=== PATIENT | female | born 1965 | race Caucasian/White ===

== ENCOUNTER 2016-10-05 07:35 | Day surgery (SDC) | payer OTHER ==
[~2016-10-05] VITALS: Ht 162.6 cm; Wt 59.0 kg
[~2016-10-05 07:35] MED LIST: BUPR10TASR PO; LEVO125T4 PO; LORA0.5T11 PO
[2016-10-05] MEDS ORDERED: LR 1,000 ML IV ONE (07:45)
[2016-10-05] MEDS ORDERED: IBUP-1022 PO (08:14)
[2016-10-05] MEDS ORDERED: AMOX500C PO (08:16)
[2016-10-05] MEDS ORDERED: HYDR-3713 PO (08:17)
[2016-10-05] MEDS ORDERED: fentaNYL 250 MCG/5 ML INJECTION (J3010) As Ordered ONE (09:11)
[2016-10-05] MEDS ORDERED: PROPOFOL 200 MG/20 ML VIAL As Ordered ONE (09:11)
[2016-10-05] MEDS ORDERED: GLYCOPYRROLATE INJ 0.2 MG/ML 2 ML VIAL As Ordered ONE (09:11)
[2016-10-05] MEDS ORDERED: ROCURONIUM BROMIDE 50 MG/5 ML VIAL/SYRINGE As Ordered ONE (09:11)
[2016-10-05] MEDS ORDERED: LIDOCAINE 2% INJ 100 MG/5 ML SDV (FOR ANES.) As Ordered ONE (09:11)
[2016-10-05] MEDS ORDERED: MIDAZOLAM INJ 2 MG/2 ML VIAL (J2250) As Ordered ONE (09:11)
[2016-10-05] MEDS ORDERED: dexameTHASONE 4 MG/ML 1ML VIAL (J1100) As Ordered ONE (09:12)
[2016-10-05] MEDS ORDERED: ONDANSETRON 4MG/2ML VIAL (J2405) As Ordered ONE (09:12)
[2016-10-05] MEDS ORDERED: METOCLOPRAMIDE INJ 10MG/2ML VIAL (J2765) As Ordered ONE (09:12)
[2016-10-05] MEDS ORDERED: MEPERIDINE INJ 25 MG/ML VIAL (J2175) IV PRN (09:45)
[2016-10-05] MEDS ORDERED: fentaNYL 100 MCG/2 ML INJECTION (J3010) IV PRN (09:45)
[2016-10-05] MEDS ORDERED: PERCOCET 5MG/325MG TAB PO PRN (09:45)
[2016-10-05] MEDS ORDERED: LR 1,000 ML IV SCH ×2 (09:45→10:00)
[2016-10-05] MEDS ORDERED: ONDANSETRON 4MG/2ML VIAL (J2405) IV PRN (09:45)
[2016-10-05] MEDS ORDERED: METOCLOPRAMIDE INJ 10MG/2ML VIAL (J2765) IV PRN (09:45)
[2016-10-05 10:50] VITALS: BP 123/66
--- NOTE | 2016-10-06 13:41 | RO ---
DATE OF PROCEDURE: 10/05/2016 PREPROCEDURE DIAGNOSIS: Caries and impacted tooth #17 with deep caries and associated cystic bony lesion between teeth 17 and 18 and carious and involved tooth #18. POSTPROCEDURE DIAGNOSIS: Caries and impacted tooth #17 with deep caries and associated cystic bony lesion between teeth 17 and 18 and carious and involved tooth #18. PROCEDURE: Surgical removal of teeth #17 and 18 and an exploration and removal of the cystic lesion in the area of 17 and 18. SURGEON: Dr. Jarett Mtz. TELEGRAPH OFFICE MANAGER: ANESTHESIA: General nasal endotracheal. INDICATION: The patient is a 51-year-old female referred by her general dentist for evaluation on removal of teeth #17 and 18 and removal of surrounding lesion between 17 and 18. The procedure was necessary to be performed in the operating room under anesthesia. The patient with past history of thyroid dysfunction and heart arrhythmia and anxiety. DESCRIPTION OF PROCEDURE: The patient was brought to the operating room (OR) per anesthesia and placed supine on the OR table wherein general nasal endotracheal anesthesia was undertaken without difficulty. After the usual sterile prep and drape for intraoral procedure was performed, a throat pack was placed. 2% Xylocaine with 1:100,000 epinephrine was injected approximately 3 mL along the surgical site. A 15-scalpel blade was used to make a full thickness mucoperiosteal incision and carried from the left external oblique ridge of the mandible forward to the first molar. Buccal flap was then raised with the periosteal elevator exposing the buccal bone support over the top of 18 and the cystic lesion was associated with tooth 17 and overlying bone support came into view. Tooth 18 was then removed after removal of small amount of buccal bone support and the area of the cystic bony lesion and the impacted tooth crown, which was carious of 17, was exposed. Tooth 17 was then exposed further with the Garcia drill and copious sterile saline exposed the impacted tooth crown. The surrounding cystic bone lesion was also noted surrounding the impacted tooth crown and extended forward to the distal portion of tooth #18. The tooth was then elevated and delivered. After that was performed, exploration and excision of the cystic lesion was performed. The lesion did extend, as previously stated, all around the impacted tooth crown of 17 forward and even inferiorly below the area of the impacted tooth 17. This all was excised. The area was copiously irrigated and examined. There was no obvious bone fractures. There was no obvious extension into the inferior alveolar canal. At closure, after copious sterile saline irrigation, the area was closed with #3-0 gut interrupted sutures for hemostasis. At the termination of the procedure, the oropharynx was inspected and found to be free of debris. The throat pack was removed and the patient's was awakened per anesthesia. The estimated blood loss was less than 5 mL. Fluids: 500 mL of crystalloid solution. The teeth were sent for identification to pathology and the cystic lesion was sent for microscopic analysis to pathology. DISPOSITION: The patient was extubated in the operating room and taken to the recovery room breathing spontaneously in stable condition. MADDY
== END 2016-10-05 10:51 | disposition home or self-care (01) ==
LOC: M SDC 07:35
PROVIDERS: ATTEND Dentist Oral and Maxillofacial Surgery
DX: K02.9 Dental caries, unspecified (principal); K01.1 Impacted teeth; K09.0 Developmental odontogenic cysts; E03.9 Hypothyroidism, unspecified; F41.9 Anxiety disorder, unspecified; Z79.899 Other long term (current) drug therapy
CPT/HCPCS: 88300; 88307; D7230; D7460; D9223

== ENCOUNTER → 2021-03-10 | Outpatient (CLI) | payer SELFPAY ==
[~2021-03-10] MED LIST changes: +AMOX500C PO; +HYDR-3713 PO; +IBUP-1022 PO; -LORA0.5T11 PO; +LORA0.5T5 PO
== END ==
LOC: M LABSMTC 12:08
PROVIDERS: ATTEND Pediatrics
DX: Z20.822 Contact with and (suspected) exposure to COVID-19 (principal)

== ENCOUNTER 2023-04-04 16:42 | Outpatient (CLI) | payer OTHER ==
[~2023-04-04] VITALS: Ht 162.6 cm; Wt 72.0 kg
[~2023-04-04 16:42] MED LIST changes: +ELIQ5TAB; +[UNRECOGNIZED DRUG - OTHER] PO
[2023-04-04 16:45] VITALS: BP 102/53; O2SAT 94
[2023-04-04] MEDS: IRON SUCROSE 100 MG in NS 95 ML IV ONE (17:00)
[2023-04-04 17:47] VITALS: BP 121/63; O2SAT 96
== END 2023-04-04 17:30 ==
LOC: M INFU 16:42
PROVIDERS: ATTEND Internal Medicine Hematology & Oncology
DX: D50.9 Iron deficiency anemia, unspecified (principal)
CPT/HCPCS: 96365; J1756

== ENCOUNTER 2023-04-18 16:30 | Outpatient (CLI) | payer OTHER ==
[~2023-04-18] VITALS: Ht 160 cm; Wt 72.3 kg
[2023-04-18 16:30] VITALS: BP 124/69; O2SAT 98
[2023-04-18] MEDS: IRON SUCROSE 100 MG in NS 95 ML IV ONE (17:00)
[2023-04-18 18:00] VITALS: BP 109/56; O2SAT 98
== END 2023-04-18 18:05 | disposition home or self-care (01) ==
LOC: M INFU 16:30
PROVIDERS: ATTEND Internal Medicine Hematology & Oncology
DX: D50.9 Iron deficiency anemia, unspecified (principal)
CPT/HCPCS: 96365; J1756

== ENCOUNTER 2023-10-04 07:28 | Day surgery (SDC) | payer OTHER ==
[~2023-10-04] VITALS: Ht 162.6 cm; Wt 72.6 kg
[~2023-10-04 07:28] MED LIST changes: +LEVO112T2 PO; +MIDAZOLAM INJ 2MG/2ML VIAL As Ordered ONE; +PHENYLEPHRINE 10% OPHTH SOL 5ML OS PRN; +THERTAB52 PO; +fentaNYL 100 MCG/2 ML INJECTION As Ordered ONE
[2023-10-04] MEDS: ATROPINE SULFATE 1% OPHTH SOLN 2ML BTL OS SCH (07:52)
[2023-10-04] MEDS: LIDOCAINE 3.5 % 1ML OPHTH TOPICAL GEL OU ONE (07:52)
[2023-10-04] MEDS: OFLOXACIN 0.3 % (OCUFLOX) OPTH SOL 5ML OS ONE (07:52)
[2023-10-04] MEDS: PHENYLEPHRINE 2.5% OPHTH SOL 2ML OS SCH (07:52)
[2023-10-04] MEDS: TROPICAMIDE 1% OPHTH SOLN 15ML OS SCH (07:52)
[2023-10-04] MEDS: BSS IRRIG/VANCO(10MG)/TOBRA(5MG)/EPINEPH(1:1000-0.5CC)500ML BAG-ORONLY As Ordered ONE (08:20)
[2023-10-04] MEDS: LIDOCAINE 1% SDV 5ML VIAL As Ordered ONE (08:20)
[2023-10-04] MEDS: CEFUROXIME 1MG/0.1ML INTRACAMERAL INJ As Ordered ONE (08:21)
[2023-10-04 08:37] VITALS: BP 115/82; TEMP 97.1; O2SAT 96
== END 2023-10-04 08:50 | disposition home or self-care (01) ==
LOC: M SDC 07:28
PROVIDERS: ATTEND Ophthalmology
DX: H25.12 Age-related nuclear cataract, left eye (principal); E03.9 Hypothyroidism, unspecified; K58.9 Irritable bowel syndrome, unspecified; Z86.711 Personal history of pulmonary embolism; Z79.890 Hormone replacement therapy; Z98.84 Bariatric surgery status; Z90.49 Acquired absence of other specified parts of digestive tract
CPT/HCPCS: 66984; 92015; J0697; J2250; J3010; V2788

== ENCOUNTER 2025-01-17 14:39 | Outpatient (CLI) | payer OTHER ==
[~2025-01-17] VITALS: Ht 162.6 cm; Wt 72.7 kg
[~2025-01-17 14:39] MED LIST changes: +ALBUTEROL SULFATE 2.5 MG/0.5 ML INH CONCENTRATE NEB SOLN INH PRN; +BUPR150T12; +EPINEPHrine INJ 1 MG/ML 1ML AMP IM PRN; -IBUP-1022 PO; +IBUP600T42 PO; -MIDAZOLAM INJ 2MG/2ML VIAL As Ordered ONE; -PHENYLEPHRINE 10% OPHTH SOL 5ML OS PRN; +diphenhydrAMINE 50 MG/ML VIAL IV PRN; -fentaNYL 100 MCG/2 ML INJECTION As Ordered ONE
[2025-01-17] MEDS: IRON SUCROSE 200MG IVP IV ONE (14:59)
[2025-01-17 15:00] VITALS: BP 105/56; O2SAT 96
[2025-01-17 15:40] VITALS: BP 115/80; O2SAT 97
== END 2025-01-17 15:45 | disposition home or self-care (01) ==
LOC: M INFU 14:39
DX: D50.9 Iron deficiency anemia, unspecified (principal)
CPT/HCPCS: 96374; J1756

== ENCOUNTER 2025-01-24 14:30 | Outpatient (CLI) | payer OTHER ==
[2025-01-24] MEDS: IRON SUCROSE 200MG IVP IV ONE (14:44)
[2025-01-24 15:20] VITALS: BP 110/73; O2SAT 97
== END 2025-01-24 15:20 ==
LOC: M INFU 14:30
DX: D50.9 Iron deficiency anemia, unspecified (principal)
CPT/HCPCS: 96374; J1756